=== PATIENT | female | born 1970 | race Two or more races ===

== ENCOUNTER 2023-02-10 05:02 | Emergency (ER) | payer OTHER ==
[~2023-02-10] VITALS: Ht 149.9 cm; Wt 52.2 kg
== END 2023-02-10 06:35 | disposition home or self-care (01) ==
LOC: ER 05:02
DX: J10.1 Influenza due to other identified influenza virus with other respiratory manifestations (principal); Z20.822 Contact with and (suspected) exposure to COVID-19